=== PATIENT | female | born 1995 | race Caucasian/White ===

== ENCOUNTER 2024-03-04 03:48 | Emergency (ER) | payer SELFPAY ==
[~2024-03-04] VITALS: Ht 175.3 cm; Wt 55.0 kg
[2024-03-04 04:11] VITALS: RESP 18; O2SAT 100
[2024-03-04 04:20] VITALS: BP 132/94; PULSE 87; TEMP 36.83628; O2SAT 100
[2024-03-04 05:12] LABS: BASOPHILS % 0.2 % (0.0-2.0); EOSINOPHILS % 1.1 % (0.0-5.0); HEMATOCRIT. 39.2 % (36.0-48.0); HEMOGLOBIN. 13.4 g/dL (12.0-16.0); LYMPHOCYTES % 30.6 % (20.0-50.0); MEAN CORPUSCULAR HEMOGLOBIN 32.4 pg (28.0-32.0); MEAN CORPUSCULAR HGB CONC 34.1 g/dL (31.0-37.0); MEAN CORPUSCULAR VOLUME 95.2 fL (81.0-99.0); MEAN PLATELET VOLUME 7.5 fl (7.4-10.4); NEUTROPHILS % 61.1 % (40.0-76.0); PLATELET 341 x1000/uL (130-400); RED BLOOD CELL COUNT 4.11 mill/uL (4.2-5.4); RED CELL DISTRIBUTION WIDTH 12.1 % (11.6-14.6); WHITE BLOOD COUNT 8.6 x1000/uL (4.5-11.0)
[2024-03-04 05:37] LABS: POTASSIUM 3.7 mEq/L (3.5-5.1)
[2024-03-04 05:38] LABS: CALCIUM 9.9 mg/dL (8.7-10.4)
[2024-03-04 05:43] LABS: CREATININE 1.2 mg/dL (0.6-1.0)
[2024-03-04 06:35] VITALS: TEMP 98.3
[2024-03-04] MEDS: ACETAMINOPHEN 325MG TABLET PO ONE (06:35)
== END 2024-03-04 08:00 | disposition home or self-care (01) ==
LOC: ER 03:48
DX: S09.90XA Unspecified injury of head, initial encounter (principal); S60.222A Contusion of left hand, initial encounter; S60.221A Contusion of right hand, initial encounter; M35.00 Sjogren syndrome, unspecified; W19.XXXA Unspecified fall, initial encounter; S80.01XA Contusion of right knee, initial encounter; Y93.89 Activity, other specified; Y92.89 Other specified places as the place of occurrence of the external cause; Y99.8 Other external cause status
CPT/HCPCS: 36415; 73130; 73562; 80048; 85025; 99284